=== PATIENT | male | born 1980 ===

== ENCOUNTER 2020-01-13 07:34 | Day surgery (SDC) | payer BC ==
[~2020-01-13 07:34] MED LIST: SODIUM CHLORIDE 0.9% 1000 ML 1,000 ML IV SCH
[2020-01-13] MEDS ORDERED: LIDOCAINE MPF (2%) 20 MG/1 ML VIAL 5 ML ONE (08:00)
--- NOTE | 2020-01-13 08:07 | Anesthesia Consultation ---
Anesthesia Consult and Med Hx Date of service: 01/13/20 - Airway Anesthetic Teeth Evaluation: Good ROM Head & Neck: Adequate Mental/Hyoid Distance: Adequate Mallampati Class: Class II Intubation Access Assessment: Probably Good - Pre-Operative Health Status ASA Pre-Surgery Classification: ASA2 Proposed Anesthetic Plan: MAC - Pulmonary Hx Smoking: Yes (cigars occ.) Hx Asthma: No Hx Respiratory Symptoms: No SOB: No COPD: No Home Oxygen Therapy: No Hx Pneumonia: No Hx Sleep Apnea: No - Cardiovascular System Hx Hypertension: No Hx Coronary Artery Disease: No Hx Heart Attack/AMI: No Hx Angina: No Hx Percutaneous Transluminal Coronary Angioplasty (PTCA): No Hx Cardia Arrhythmia: No Hx Pacemaker: No Hx Internal Defibrillator: No Hx Valvular Heart Disease: No Hx Heart Murmur: No Hx Peripheral Vascular Disease: No - Central Nervous System Hx Neuromuscular Disorder: No Hx Seizures: No CVA: No Hx Back Pain: No Hx Psychiatric Problems: No - Gastrointestinal Hx Ulcer: No Hx Gastroesophageal Reflux Disease: Yes - Endocrine Hx Renal Disease: No Hx End Stage Renal Disease: No Hx Cirrhosis: No Hx Liver Disease: No Hx Insulin Dependent Diabetes: No Hx Non-Insulin Dependent Diabetes: No Hx Thyroid Disease: No Hx Hypothyroidism: No Hx Hyperthyroidism: No - Hematic Hx Anemia: No Hx Sickle Cell Disease: No - Other Systems Hx Alcohol Use: No Hx Substance Use: No Hx Cancer: No Hx Obesity: No
--- NOTE | 2020-01-13 08:07 | Anesthesia Day of Surgery ---
Anesthesia Day of Surgery - Day of Surgery Patient Examined: Yes Patient H&P Reviewed: Yes Patient is NPO: Yes
[2020-01-13] MEDS ORDERED: propofoL 200 MG/20 ML VIAL IV ONE ×2 (08:11)
--- NOTE | 2020-01-13 09:23 | Procedure Note ---
Date of procedure: 01/13/20 Pre-op diagnosis: Epigastric Pain Post-op diagnosis: other (No Peptic Ulcer noted/ Mild to Moderate Erosive Esophagitis/ Gastritis/ R/O Celiac Disease/ R/O Eosinophilic Esophagitis) Procedure: EGD with biopsy Anesthesia: MAC Surgeon: BUD BALLARD Estimated blood loss: minimal Pathology: list Specimen disposition: to lab Condition: stable Disposition: same day (Treat with PPI and prn Bentyl. Avoid aspirin and NSAID for 5 days; otherwise resume home medication. Avoid tobacco and alcohol products and follow up in 1 to 2 weeks ([phone]).)
--- NOTE | 2020-01-13 09:31 | Operative Report ---
PROCEDURE: EGD with biopsy. INDICATIONS: This is a 39-year-old gentleman who has been having some epigastric pain and discomfort that had prompted him to go to the Emergency Room. EGD was done to assess for any associated peptic ulcer disease. DESCRIPTION OF PROCEDURE: The procedure was done after getting informed consent with MAC anesthesia. Instrument was passed through the hypopharynx into the esophagus, which showed some mild to moderate distal erosive esophagitis. Biopsy was done from the distal as well as the mid esophagus to assess for the severity of erosive esophagitis and to assess for any associated eosinophilic esophagitis. The stomach showed gastritis. No ulcers were noted in the straight or the retroverted view. The pylorus was patent. The duodenum in the first and second portion appeared normal. Biopsy was done from the second part to rule out for possible celiac disease. Additional biopsy was done from the gastric antrum, gastric body and angular incisura to rule out for H. pylori and atrophic gastritis. There was minimal bleeding associated with the procedure. No complications associated with the procedure. ASSESSMENT: Epigastric pain, no peptic ulcer disease noted. Mild to moderate erosive esophagitis, gastritis, rule out celiac disease, rule out eosinophilic esophagitis. PLAN: To have the patient avoid aspirin and aspirin-related products for the next few days. Otherwise, resume home medication. Treat the patient with PPI, p.r.n. dose of Bentyl. Also encouraged the patient to take probiotics, have the patient avoid aspirin and aspirin-related products, tobacco as well as alcohol products and follow up in the office in 1-2 weeks' time. The procedure was done in the GI lab with assistance of the GI lab team, which included Kristin ARCHULETA as well as Stefany dumont and with assistance of anesthesia. JOB# [id number] FAYE/LARA
[2020-01-13 10:17] VITALS: BP 111/82
--- NOTE | 2020-01-13 13:42 | Post Anesthesia Evaluation ---
- Post Anesthesia Evaluation Patient Participated: Yes Airway Patent: Yes Stable Respiratory Function: Yes Nausea/Vomiting: No Temp > 96.8F: Yes Pain Manageable: Yes Adequeate Hydration: Yes Anesthesia Complications: No
== END 2020-01-13 07:35 | disposition home or self-care (01) ==
LOC: GIO 07:34
DX: R10.13 Epigastric pain (principal); R14.0 Abdominal distension (gaseous); K21.0 Gastro-esophageal reflux disease with esophagitis; K29.50 Unspecified chronic gastritis without bleeding; K31.89 Other diseases of stomach and duodenum; Z79.899 Other long term (current) drug therapy; Z87.891 Personal history of nicotine dependence; Z98.890 Other specified postprocedural states
CPT/HCPCS: 43239; 88305; 88342; J2704; J7030